=== PATIENT | male | born 1970 | race Caucasian/White ===

== ENCOUNTER 2018-02-10 06:07 | Inpatient (IN) | payer OTHER ==
[~2018-02-10] VITALS: Ht 185.4 cm; Wt 103.0 kg
[2018-02-10 07:07] LABS: BASOPHIL % 0.2 % (0-2); PLATELET COUNT 400 x10^3mcL (130-400); RED CELL DISTRIBUTION WIDTH 13.7 % (11.5-14.5)
[2018-02-10 07:20] LABS: ALBUMIN 3.8 g/dL (3.4-5.0); ALKALINE PHOSPHATASE 75 U/L (46-116); ALT/SGPT 28 U/L (16-63); AST/SGOT 19 U/L (15-37); CALCIUM 8.7 mg/dL (8.5-10.1); CARBON DIOXIDE 30.1 mmol/L (21-32); CHLORIDE SERUM 103 mmol/L (98-107); CREATININE SERUM 1.2 mg/dL (0.7-1.3); GFR1 > 60 mL/min; GLUCOSE SERUM 117 mg/dL (74-106); SODIUM SERUM 139 mmol/L (136-145); TOTAL PROTEIN, SERUM 7.5 g/dL (6.4-8.2)
[2018-02-10 07:24] LABS: POTASSIUM SERUM 2.5 mmol/L (3.5-5.1)
[2018-02-10 07:26] LABS: AMYLASE 50 U/L (25-115); HDL CHOLESTEROL 56 mg/dL (40-60); LIPASE 204 IU/L (73-393)
[2018-02-10 07:28] LABS: CHOLESTEROL 212 mg/dL (<200)
[2018-02-10 07:32] LABS: CALCIUM 8.9 mg/dL (8.5-10.1); MAGNESIUM 2.2 mg/dL (1.8-2.4)
[2018-02-10 07:57] LABS: UA SPECIFIC GRAVITY 1.025 (1.005-1.035); microscopic required? YES; urine erythrocyte NEGATIVE (NEGATIVE)
[2018-02-10 07:59] LABS: AMPHETAMINE QUAL UR POSITIVE (See below)
[2018-02-10 10:23] VITALS: BP 137/87
[2018-02-10 13:00] VITALS: BP 133/95
[2018-02-10 17:22] VITALS: BP 133/90
[2018-02-10 21:02] VITALS: BP 137/85
[2018-02-11 04:58] VITALS: BP 123/88
[2018-02-11 07:26] LABS: CALCIUM 8.6 mg/dL (8.5-10.1); CARBON DIOXIDE 32.4 mmol/L (21-32); CHLORIDE SERUM 106 mmol/L (98-107); GFR1 > 60 mL/min; GLUCOSE SERUM 105 mg/dL (74-106); MAGNESIUM 2.4 mg/dL (1.8-2.4); POTASSIUM SERUM 3.8 mmol/L (3.5-5.1); SODIUM SERUM 142 mmol/L (136-145)
[2018-02-11 09:09] VITALS: BP 141/95
== END 2018-02-11 14:06 | disposition home or self-care (01) | DRG 305 ==
LOC: ED 06:07 → DU 08:11
PROVIDERS: Emergency Medicine; Internal Medicine Pulmonary Disease
DX: I16.1 Hypertensive emergency (principal); F15.20 Other stimulant dependence, uncomplicated; I10 Essential (primary) hypertension; E87.6 Hypokalemia; R55 Syncope and collapse; F12.99 Cannabis use, unspecified with unspecified cannabis-induced disorder; W18.39XA Other fall on same level, initial encounter; I16.0 Hypertensive urgency; F12.90 Cannabis use, unspecified, uncomplicated; Y93.89 Activity, other specified; Y92.098 Other place in other non-institutional residence as the place of occurrence of the external cause; Y99.8 Other external cause status; Z88.6 Allergy status to analgesic agent
CPT/HCPCS: 82962; 83880; J1650; J3480; J3490; Q0092

== ENCOUNTER 2018-06-19 20:21 | Emergency (ER) | payer OTHER ==
[~2018-06-19] VITALS: Ht 185.4 cm; Wt 104.3 kg
[2018-06-19 20:30] VITALS: Ht 185.4 cm; Wt 104.3 kg
[2018-06-19 23:06] VITALS: BP 146/98
== END 2018-06-19 23:07 | disposition home or self-care (01) ==
LOC: ED 20:21
DX: S39.012A Strain of muscle, fascia and tendon of lower back, initial encounter (principal); I10 Essential (primary) hypertension; Z79.82 Long term (current) use of aspirin; X50.0XXA Overexertion from strenuous movement or load, initial encounter; Y93.89 Activity, other specified; Y92.89 Other specified places as the place of occurrence of the external cause; Y99.8 Other external cause status
CPT/HCPCS: J1885

== ENCOUNTER 2018-07-09 22:29 | Emergency (ER) | payer OTHER ==
[~2018-07-09] VITALS: Ht 180.3 cm; Wt 105.2 kg
[2018-07-09 22:38] VITALS: Ht 180.3 cm; Wt 105.2 kg
[2018-07-10 01:27] VITALS: BP 121/74
== END 2018-07-10 01:27 | disposition home or self-care (01) ==
LOC: ED 22:29
DX: M54.40 Lumbago with sciatica, unspecified side (principal); I10 Essential (primary) hypertension; Z88.6 Allergy status to analgesic agent; Z98.890 Other specified postprocedural states
CPT/HCPCS: J1885